=== PATIENT | female | born 1990 | race Caucasian/White ===

== ENCOUNTER 2018-11-28 00:10 | Emergency (ER) | payer MEDICAID, SELFPAY ==
--- NOTE | 2018-11-28 00:11 | W.ED.GENAD ---
Discharge Plan Disposition Patient Disposition: HOME Condition: Stable Discharge Details Chief Complaint: Allergic Clinical Impression: Urticaria Primary Care Provider: Dana Castrejon V ED Provider: Brandon Beltran Home Meds and New Rx's Prescriptions: No Action PNV cmb#95-ferrous fumarate-FA [] 1 EACH tablet 1 ea PO BID RF: 0 Discharge Instructions Instructions: Urticaria (ED) Additional Instructions: you can take benadryl and zyrtec for the itching as needed, follow dosing instructions on packaging follow up with your primary care provider to discuss being referred to an top hat body maker if you develop difficulty breathing, abdominal pain or persistent vomit return to the emergency department Medical Decision Making 28 yo female at 16 weeks per pt comes in with cc of itching. She states she took lactaid for the first time last night, comes in after she woke up with with itching on her legs and arms. She has multiple areas of mild erythema of her legs and arms that neha, are not warm or tender. No respiratory or gi symptoms to suggest anaphylaxis. Suspect allergic reaction to the lactaid. I offered to give benadryl and zyrtec here as they are class b for but she prefers to take them at home. I aadvised f/u with pcp and return if worsening or if she develops respiratory or gi symptoms. She is in her first trimester and has urticaria so do not feel w/u for intrahepatic cholestasis of indicated at this time Differential Diagnosis urticaria, allergic reaction HPI General Mode of arrival: ambulatory. Date/Time Provider Initiated Documentation: 11/28/18 00:11. Limitations to Documentation: no limitations. Information obtained by: patient. History of Present Illness 28 year old F presents to the emergency department with the chief complaint of itching, described as moderate, Patient started experiencing this hour(s) (1) and it has been constant. No relieving factors improve symptom(s), No exacerbating factors reported . Patient notes no other symptoms.. Patient did receive the following treatments prior to arrival, none Related Data Home Medications Medication Instructions Recorded Confirmed PNV cmb#95-ferrous fumarate-FA 1 ea PO BID 07/18/16 11/28/18 [] Allergies Allergy/AdvReac Type Severity Reaction Status Date / Time bacitracin Allergy Severe Hives Unverified 10/31/17 12:30 Penicillins Allergy Unknown Unverified 10/31/17 12:30 Review of Systems Review of Systems All systems reviewed & are unremarkable except as noted in HPI and below Constitutional Denies chills, Denies fever(s) and Denies weakness Cardiovascular Denies chest pain and Denies dyspnea Respiratory Denies cough and Denies dyspnea Gastrointestinal Denies abdominal pain, Denies nausea and Denies vomiting Genitourinary Denies dysuria Musculoskeletal Denies joint swelling Neurologic Denies weakness PFSH Medical History Anxiety Fibrocystic disease of breast depression Thyroid nodule fibromyalgia ovarian cyst Surgical History Oophrectomy, Left (06/17/15) [place] tooth extraction Family History Father Essential hypertension Prostate cancer Brother Essential hypertension Grandmother Diabetes Alzheimer's disease Grandmother No problems noted. Aunt Heart disease Mother COPD (chronic obstructive pulmonary disease) Social History Smoking and Tabacco status: Former Tobacco Use Exam Const General: no acute distress Orientation: alert HENMT Head: normal to inspection Ears: external ears normal General nose exam: external nose normal Mouth: moist mucous membranes Eyes General: appearance normal, both eyes and all related structures Neck Neck: normal visual inspection Resp Effort & Inspection: normal respiratory effort and able to speak in complete sentences Cardio Rate: regular rate Skin General skin exam: other (uritcaria) Neuro General: alert and oriented x3 Extrem General: normal to inspection Psych Mental Status: mental status grossly normal
[2018-11-28 00:13] VITALS: BP 106/39; PULSE 70; RESP 18; TEMP 36.5; O2SAT 97
--- NOTE | 2018-11-28 00:30 | ED.GENADUL_ITS ---
Discharge Plan Disposition Patient Disposition: HOME Condition: Stable Discharge Details Chief Complaint: Allergic Clinical Impression: Urticaria Primary Care Provider: Dana Castrejon V ED Provider: Brandon Beltran Home Meds and New Rx's Prescriptions: No Action PNV cmb#95-ferrous fumarate-FA [] 1 EACH tablet 1 ea PO BID RF: 0 Discharge Instructions Instructions: Urticaria (ED) Additional Instructions: you can take benadryl and zyrtec for the itching as needed, follow dosing instructions on packaging follow up with your primary care provider to discuss being referred to an machinist supervisor if you develop difficulty breathing, abdominal pain or persistent vomit return to the emergency department Medical Decision Making 28 yo female at 16 weeks per pt comes in with cc of itching. She states she took lactaid for the first time last night, comes in after she woke up with with itching on her legs and arms. She has multiple areas of mild erythema of her legs and arms that neha, are not warm or tender. No respiratory or gi symptoms to suggest anaphylaxis. Suspect allergic reaction to the lactaid. I offered to give benadryl and zyrtec here as they are class b for but she prefers to take them at home. I aadvised f/u with pcp and return if worsening or if she develops respiratory or gi symptoms. She is in her first trimester and has urticaria so do not feel w/u for intrahepatic cholestasis of indicated at this time Differential Diagnosis urticaria, allergic reaction HPI General Mode of arrival: ambulatory . Date/Time Provider Initiated Documentation: 11/28/18 00:11 . Limitations to Documentation: no limitations . Information obtained by: patient . History of Present Illness 28 year old F presents to the emergency department with the chief complaint of itching, described as moderate, Patient started experiencing this hour(s) (1) and it has been constant. No relieving factors improve symptom(s), No exacerbating factors reported . Patient notes no other symptoms.. Patient did receive the following treatments prior to arrival, none Related Data Home Medications Medication Instructions Recorded Confirmed PNV cmb#95-ferrous fumarate-FA 1 ea PO BID 07/18/16 11/28/18 [] Allergies Allergy/AdvReac Type Severity Reaction Status Date / Time bacitracin Allergy Severe Hives Unverified 10/31/17 12:30 Penicillins Allergy Unknown Unverified 10/31/17 12:30 Review of Systems Review of Systems All systems reviewed & are unremarkable except as noted in HPI and below Constitutional Denies chills, Denies fever(s) and Denies weakness Cardiovascular Denies chest pain and Denies dyspnea Respiratory Denies cough and Denies dyspnea Gastrointestinal Denies abdominal pain, Denies nausea and Denies vomiting Genitourinary Denies dysuria Musculoskeletal Denies joint swelling Neurologic Denies weakness PFSH Medical History Anxiety Fibrocystic disease of breast depression Thyroid nodule fibromyalgia ovarian cyst Surgical History Oophrectomy, Left (06/17/15) [place] tooth extraction Family History Father Essential hypertension Prostate cancer Brother Essential hypertension Grandmother Diabetes Alzheimer's disease Grandmother No problems noted. Aunt Heart disease Mother COPD (chronic obstructive pulmonary disease) Social History Smoking and Tabacco status: Former Tobacco Use Exam Const General: no acute distress Orientation: alert HENMT Head: normal to inspection Ears: external ears normal General nose exam: external nose normal Mouth: moist mucous membranes Eyes General: appearance normal, both eyes and all related structures Neck Neck: normal visual inspection Resp Effort & Inspection: normal respiratory effort and able to speak in complete sentences Cardio Rate: regular rate Skin General skin exam: other (uritcaria) Neuro General: alert and oriented x3 Extrem General: normal to inspection Psych Mental Status: mental status grossly normal
[2018-11-28] MEDS: diphenhydrAMINE 25 MG CAP PO (00:31)
[2018-11-28] MEDS: Cetirizine 10 MG TAB PO (00:31)
== END 2018-11-28 00:34 | disposition home or self-care (01) ==
LOC: ER 00:41
PROVIDERS: Emergency Provider Emergency Medicine; PCP Family Medicine
DX: O99.72 Diseases of the skin and subcutaneous tissue complicating childbirth (principal); L50.9 Urticaria, unspecified; Z3A.16 16 weeks gestation of pregnancy
CPT/HCPCS: 99283

== ENCOUNTER 2024-05-22 10:11 | Emergency (ER) | payer SELFPAY ==
[2024-05-22 10:13] VITALS: BP 130/88; PULSE 75; RESP 15; TEMP 36.9; O2SAT 95
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
[2024-05-22] MEDS: Ondansetron O.D.T. 4 MG TABEF, 3 TABS/BTL PO (10:52)
[2024-05-22] MEDS: Acetaminophen 500 MG TAB 1000 MG PO (10:53)
[2024-05-22] MEDS: Ibuprofen 600 MG TAB PO (10:54)
[2024-05-22] MEDS: Lidocaine 5% Patch 1 PATCH TP (10:55)
== END 2024-05-22 11:01 | disposition home or self-care (01) ==
LOC: ER 11:12
PROVIDERS: Emergency Provider Emergency Medicine; PCP Family Medicine
DX: M54.2 Cervicalgia (principal); M54.6 Pain in thoracic spine; V49.40XA Driver injured in collision with unspecified motor vehicles in traffic accident, initial encounter
CPT/HCPCS: 99283